=== PATIENT | male | born 1965 | race Caucasian/White ===

== ENCOUNTER 2016-07-27 21:17 | Emergency (ER) | payer OTHER ==
[2016-07-27] MEDS ORDERED: IOPAMIDOL 370 (76%) 100 ML VIAL IV ONE (21:18)
--- NOTE | 2016-07-27 22:25 | RAD ---
Name: FORD MONTERROSO Exam: Two-view chest Comparison: None Clinical history: Left upper quadrant pain Findings: 2 views of the chest are submitted. The heart mediastinum and hilar structures are within normal limits. There is no failure, infiltrate, pleural effusion or pneumothorax. Regional skeleton is within normal limits. Impression: No acute cardiopulmonary process
[2016-07-27 23:41] LABS: ABSOLUTE NEUTROPHIL COUNT 4.7 K/mm3 (1.8-7.7); BASO % 0.4 % (0.2-1.0); EOS # 0.1 (0.0-0.5); EOS % 1.7 % (0.9-2.9); HEMOGLOBIN 16.5 gm/l (14.0-18.0); IMM NEUT% 0.2 % (0-1); LYMPH # 2.6 (1.0-4.8); LYMPH % 31.8 % (15-45); MEAN CELL VOLUME 85.1 fl (80.0-94.0); MEAN CORPUSCULAR HEMOGLOBIN 27.5 pg (27.0-31.0); MEAN CORPUSCULAR HGB CONC 32.4 g/dl (33.0-37.0); MEAN PLATELET VOLUME 10.5 fl (7.4-10.4); MONO # 0.8 (0.0-0.8); MONO % 9.5 % (4-12); NEUT % 56.4 % (43-75); PLATELET COUNT 196 K/mm3 (130-400); RED CELL DISTRIBUTION WIDTH 12.4 % (11.5-14.5)
[2016-07-27 23:57] LABS: ALB/GLOB RATIO 1.3 (>1.0); ALBUMIN 4.1 gm/dL (3.5-5.7); CALCIUM 9.3 mg/dL (8.6-10.3)
[2016-07-28 00:30] LABS: SPECIFIC GRAVITY 1.015 (1.001-1.030); URINE BILIRUBIN NEGATIVE (NEGATIVE); URINE BLOOD TRACE (NEGATIVE); URINE GLUCOSE (UA) NEGATIVE (NEGATIVE); URINE LEUKOCYTE ESTERASE NEGATIVE (NEGATIVE); URINE NITRITE NEGATIVE (NEGATIVE); URINE PROTEIN NEGATIVE (NEGATIVE); URINE UROBILINOGEN NORMAL (0-1 mg/dl)
[2016-07-28 00:31] LABS: URINE APPEARANCE CLEAR; URINE COLOR LIGHT YELLOW
[2016-07-28 00:43] LABS: URINE BACTERIA 0; URINE EPITHELIAL CELLS 0-1 /hpf; URINE WBC 0-1 /hpf
--- NOTE | 2016-07-28 08:18 | CT ---
Name: FORD MONTERROSO Exam: CT abdomen pelvis with contrast Comparison: None History: Left upper quadrant pain Procedure: Helical CT using multidetector technique was applied to the abdomen and pelvis during intravenous administration of 100 cc Isovue-370. No oral contrast was given per ordering physician. An automated dose reduction technique was used to minimize patient radiation dose. Findings: CT abdomen (contrast enhanced): In the right posterior costophrenic sulcus, there is a smooth air-filled thin-walled structure measuring 5.3 cm in size compatible with a bleb or bulla. Heart is not enlarged. There is no pericardial effusion. Fatty infiltration liver is suspected in the liver is normal size. Gallbladder is partially contracted. There is no suspicious biliary dilation. Pancreas, spleen, adrenal glands, right kidney, aorta, IVC, portal vein, stomach, small bowel and appendix are normal. At the posterior margin of the upper pole of the left kidney there is a 2.1 cm cyst. There is small amount of inflammation surrounding the decompressed descending colon. There is no free air, free fluid or suspicious adenopathy. Small fat filled umbilical hernia is present. Multilevel degenerative disease of the spine is present. CT pelvis (contrast enhanced): Bladder, prostate and seminal vesicles are within normal limits. Colon and small bowel are unremarkable. There is no free air, free fluid or suspicious adenopathy. Impression: 1. Inflammatory stranding surrounding the decompressed descending colon. Findings could represent colitis or epiploic appendagitis. There is no current evidence for perforation, abscess or obstruction. 2. Normal appendix. There is no small bowel obstruction 3. Small fat filled umbilical hernia 4. 2.1 cm left renal cyst 5. 5.3 cm bleb or bulla in the right posterior costophrenic sulcus Note: Findings were transmitted to the emergency department from [facility] 0023 hours
== END 2016-07-28 01:02 | disposition home or self-care (01) ==
LOC: ED 21:17
DX: K63.89 Other specified diseases of intestine (principal)
CPT/HCPCS: 83690; 85025; 80053; 84484; 81001; 71020; 74177; 99283; 99284; Q9967